=== PATIENT | male | born 1940 | race Two or more races ===

== ENCOUNTER 2020-06-10 15:31 | Inpatient (IN) | payer OTHER ==
[~2020-06-10] VITALS: Ht 165.1 cm; Wt 62.6 kg
[~2020-06-10 15:31] MED LIST: CLONAZEPAM0.5 MG PO; NEURONTIN300 MG PO; ZESTRIL5 MG PO
[2020-06-15] MEDS ORDERED: CLOPIDOGREL BIS75 MG PO (15:41)
[2020-07-09] MEDS ORDERED: PRILOSEC OTC20 MG PO (11:56)
[2020-07-09] MEDS ORDERED: FLUCONAZOLE100 MG PO (11:56)
[2020-07-09] MEDS ORDERED: INTESTINEX680 M1 PO (11:56)
[2020-07-09] MEDS ORDERED: LEVAQUIN750 MG PO (11:56)
== END 2020-07-10 23:22 | disposition home or self-care (01) | DRG 329 ==
LOC: ICU 06-15 09:56 → O/R 06-15 09:56 → SURG 06-15 09:56 → SURH 06-15 10:58 → SURG 06-15 20:02 → ICU 06-18 13:54 → SURH 06-29 19:50
PROVIDERS: ADMIT Surgery; ATTEND Surgery
PROC: 0DBN0ZZ Excision of Sigmoid Colon, Open Approach (ICD-10-PCS; 2020-06-15)
PROC: 0DSN0ZZ Reposition Sigmoid Colon, Open Approach (ICD-10-PCS; 2020-06-15)
PROC: 0WUF0JZ Supplement Abdominal Wall with Synthetic Substitute, Open Approach (ICD-10-PCS; 2020-06-15)
PROC: 0FT40ZZ Resection of Gallbladder, Open Approach (ICD-10-PCS; 2020-06-15)
PROC: 0DBU0ZZ Excision of Omentum, Open Approach (ICD-10-PCS; 2020-06-15)
PROC: 0DTP0ZZ Resection of Rectum, Open Approach (ICD-10-PCS; principal; 2020-06-15 19:00)
PROC: 3E0F7SF Introduction of Other Gas into Respiratory Tract, Via Natural or Artificial Opening (ICD-10-PCS; 2020-06-16)
PROC: 0BH17EZ Insertion of Endotracheal Airway into Trachea, Via Natural or Artificial Opening (ICD-10-PCS; 2020-06-18)
PROC: 5A1955Z Respiratory Ventilation, Greater than 96 Consecutive Hours (ICD-10-PCS; 2020-06-18)
PROC: 4A12X4Z Monitoring of Cardiac Electrical Activity, External Approach (ICD-10-PCS; 2020-06-18)
PROC: 02HV33Z Insertion of Infusion Device into Superior Vena Cava, Percutaneous Approach (ICD-10-PCS; 2020-06-18)
PROC: 4A033R1 Measurement of Arterial Saturation, Peripheral, Percutaneous Approach (ICD-10-PCS; 2020-06-18)
PROC: 3E0436Z Introduction of Nutritional Substance into Central Vein, Percutaneous Approach (ICD-10-PCS; 2020-06-18)
PROC: B24BZZZ Ultrasonography of Heart with Aorta (ICD-10-PCS; 2020-06-18)
PROC: 8E0ZXY6 Isolation (ICD-10-PCS; 2020-06-21)
PROC: 30233R1 Transfusion of Nonautologous Platelets into Peripheral Vein, Percutaneous Approach (ICD-10-PCS; 2020-06-22)
PROC: BW21YZZ Computerized Tomography (CT Scan) of Abdomen and Pelvis using Other Contrast (ICD-10-PCS; 2020-07-07)
DX: K57.30 Diverticulosis of large intestine without perforation or abscess without bleeding (principal); J96.01 Acute respiratory failure with hypoxia; R65.21 Severe sepsis with septic shock; J15.5 Pneumonia due to Escherichia coli; A41.9 Sepsis, unspecified organism; J69.0 Pneumonitis due to inhalation of food and vomit; K43.3 Parastomal hernia with obstruction, without gangrene; K92.0 Hematemesis; N17.8 Other acute kidney failure; E87.2 Acidosis; A04.72 Enterocolitis due to Clostridium difficile, not specified as recurrent; J95.89 Other postprocedural complications and disorders of respiratory system, not elsewhere classified; I10 Essential (primary) hypertension; Z93.3 Colostomy status; Z20.828 Contact with and (suspected) exposure to other viral communicable diseases; D64.89 Other specified anemias; E83.39 Other disorders of phosphorus metabolism; K81.1 Chronic cholecystitis

== ENCOUNTER 2020-06-14 06:33 | Day surgery (SDC) | payer OTHER ==
[2020-06-15] MEDS ORDERED: CLOPIDOGREL BIS75 MG PO (15:41)
== END 2020-06-14 10:45 | disposition home or self-care (01) ==
LOC: AMB-ENDOS 06:33 → O/R 06-15 08:45 → EDSTATUS 06-15 08:45 → SURH 06-15 08:45 → AMB-ENDOS 06-15 08:45
PROVIDERS: ATTEND Surgery
DX: K62.89 Other specified diseases of anus and rectum (principal); Z20.828 Contact with and (suspected) exposure to other viral communicable diseases